=== PATIENT | male | born 1995 | race Caucasian/White ===

== ENCOUNTER 2021-01-06 15:39 | Emergency (ER) | payer OTHER ==
[~2021-01-06] VITALS: Ht 180.3 cm; Wt 138.0 kg
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
[2021-01-06] MEDS ORDERED: silver sulfADIAZINE 1% CREAM 50GM JAR. TP ONE (18:00)
[2021-01-06 18:04] VITALS: BP 168/99
== END 2021-01-06 18:07 | disposition home or self-care (01) ==
LOC: ER 15:39
DX: T20.07XA Burn of unspecified degree of neck, initial encounter (principal); T21.01XA Burn of unspecified degree of chest wall, initial encounter; T31.0 Burns involving less than 10% of body surface; Z88.0 Allergy status to penicillin; X11.8XXA Contact with other hot tap-water, initial encounter; Y93.89 Activity, other specified; Y92.89 Other specified places as the place of occurrence of the external cause; Y99.8 Other external cause status
CPT/HCPCS: 16020; 99282